=== PATIENT | male | born 1945 | race Caucasian/White ===

== ENCOUNTER → 2017-02-01 | Outpatient (CLI) | payer OTHER, MEDICARE ==
[~2017-02-01] MED LIST: CYAN10005 PO; GLUCTAB7 PO; LIGAPLEX PO; MAGN400T6 PO; VITACAP26 PO
--- NOTE | 2017-02-01 15:37 | DIAGNOSTIC IMAGING REPORT ---
TWO VIEW CHEST CLINICAL HISTORY: Chronic cough. FINDINGS: PA and lateral chest radiographs are obtained. No prior studies are available for comparison at the time of dictation. The PA view is degraded by apical and out of positioning. The heart is top normal for projection. The mediastinal contour is within normal limits. There is mild elevation of left hemidiaphragm with left basilar atelectasis. The lungs and pleural spaces are otherwise clear. There is no pneumothorax. The bony thorax appears intact. Degenerative change is seen throughout the thoracic spine. Chronic posttraumatic deformity is noted in the left clavicle. IMPRESSION: No active disease in the chest. Electronically signed by: Margarito Carrillo M.D. 02/01/2017 3:34 PM Dictated Date/Time: 02/01/2017 3:33 PM
== END | disposition home or self-care (01) ==
LOC: C.RADPV 15:20
PROVIDERS: ATTEND Chiropractor
DX: R05 Cough (principal)

== ENCOUNTER 2019-01-11 04:47 | Inpatient (IN) ==
--- NOTE | 2018-12-10 14:49 | Anesthesiology Consultation ---
Date of Service December 10, 2018 Assessment & Plan (1) Encounter for pre-operative examination: Chart Review Chart Review: Acceptable Risk for Surgery and Patient seen in Pre Admission Testing Teaching & Discussion Instructed NPO after midnight before surgery, except medications with 15 cc of water. Medication instructions provided according to the PAT guidelines. History Surgery Operation Date: 01/11/19 07:00 Proposed Procedures p Right Anterior Total Hip Arthroplasty - Gene Clayton DO Height/Weight Height: 5 ft 11 in Weight: 107.1 kg Allergies Allergy/AdvReac Type Severity Reaction Status Date / Time No Known Allergies Allergy Unverified 12/04/18 08:15 Medications Home Medications Medication Instructions Recorded Confirmed Last Taken [place] Bark 1 tab PO DAILY 12/04/18 12/04/18 Unknown ismodqxy-lroas-lgn4-C-mane-bor 1 tab PO QAM 12/04/18 12/04/18 Unknown [Mxuirzky-Ajouz-GYM(with boron)] magnesium 250 mg PO DAILY 12/04/18 12/04/18 Unknown multivitamin 1 tab PO DAILY 12/04/18 12/04/18 Unknown turmeric-turmeric ext-pepper 1 cap PO QAM 12/04/18 12/04/18 Unknown Past Medical History Medical History Chronic back pain Degenerative disc disease Obesity Osteoarthritis Past Family History Family History Mother Family history of diabetes mellitus Past Surgical History Surgical History H/O arthroscopy of knee Complicated by post-op MRSA infection, req'd subsequent debridement surgery. [facility] 25+ yrs ago. H/O eye surgery MACULAR HOLES REPAIR BILATERAL EYES History of carpal tunnel release BILATERAL History of cataract surgery BILATERAL Nausea and vomiting after administration of anesthetic agent Past Anesthesia History No Family Hx of Anesthesia Complications and Other single episode of PONV History of PONV Yes (single episode with cataract) Motion Sickness Screening History of Motion Sickness: Yes Social History Smoking Status: Former smoker tobacco type: cigarettes Do You Dip or Chew Tobacco: No Smoking End Date: QUIT ATE AGE 28 Hx Alcohol Use: Yes Alcohol type: beer alcohol intake frequency: a few times a month Hx Substance Use: No substance use type: does not use Exercise / Class Metabolic Activity II 4-5 Yardwork/Stairs/Walk up hill (Denies CP or SOB with stairs, does flight daily at home) Review of Systems Pt denies any recent chest pain, shortness of breath, palpitations, cough, fever or URI. Physical Exam Vital Signs BP: 130/73 P: 77bpm SPO2: 95% RA T: 98.7 F R: 18 ENMT Mouth: + dental restorations (few crowns); no chipped teeth and no loose teeth Thyromental Distance: > or= 3.5 Finger Breadths (4) Mallampati Class: II Missing almost all bottom teeth. Front incisors remain. Neck normal visual inspection; neck extension not limited Respiratory normal respiratory effort Auscultation: lungs clear to auscultation bilaterally Cardiovascular Rate/Rhythm: regular rate and regular rhythm Heart Sounds: no murmur Vessels: no carotid bruit Testing Electrocardiogram Date: 12/10/18 Findings: + NSR @ (73) Chest X-Ray Date: 12/10/18 FINDINGS: Cardiomediastinal and hilar silhouettes are unchanged. No pneumothorax, pleural effusion, lobar airspace consolidation or overt pulmonary edema. Subsegmental left basilar opacities are unchanged suggesting scarring/atelectasis. Healed remote fracture deformity about the left clavicle. Degenerative changes of the s houlders and spine. IMPRESSION: No acute process. Laboratory Results 12/10/18 15:12/10/18 15: Blood Type O Positive 12/10/18 15: Antibody Screen NEGATIVE 12/10/18 15: PT 10.6 Seconds (9.0-12.0) 12/10/18 15: INR 1.0 (0.9-1.1) 12/10/18 15: APTT 25.4 Seconds (21.0-31.0) 12/10/18 15:01
--- NOTE | 2018-12-10 14:57 | PAT Medication Instructions ---
Medication Instructions Date of Service December 10, 2018 Home Medications [place] Bark 1 tab PO DAILY qlykywgc-mxpuy-wsx6-C-mane-bor 1 tab PO QAM magnesium 250 mg PO DAILY multivitamin 1 tab PO DAILY turmeric-turmeric ext-pepper 1 cap PO QAM STOP taking 2 weeks before surgery [place] Bark 1 tab PO DAILY ofvmbiqb-nwkni-orf1-C-mane-bor 1 tab PO QAM turmeric-turmeric ext-pepper 1 cap PO QAM DO NOT take the morning of surgery magnesium 250 mg PO DAILY multivitamin 1 tab PO DAILY Other Notes If you have any questions please call us at [phone] or [phone] or [phone] or [phone]
--- NOTE | 2018-12-10 15:38 | XRay Report ---
XR chest Pre-admission PA/Lat HISTORY: 72 years-old Male PAT preoperative exam. No acute chest complaints COMPARISON: Chest radiograph 02/01/2017 TECHNIQUE: PA and lateral views of the chest FINDINGS: Cardiomediastinal and hilar silhouettes are unchanged. No pneumothorax, pleural effusion, lobar airsp yong consolidation or overt pulmonary edema. Subsegmental left basilar opacities are unchanged suggest ing scarring/atelectasis. Healed remote fracture deformity about the left clavicle. Degenerative gilbert ges of the shoulders and spine. IMPRESSION: No acute process. The above report was generated using voice recognition software. It may contain grammatical, syntax o r spelling errors. Electronically signed by: Eren Hugo M.D. 12/10/2018 3:36 PM
[2018-12-10 16:02] LABS: Basophils # (auto) 0.04 K/uL (0-0.2); Basophils % (auto) 0.4 %; Eosinophils # (auto) 0.19 K/uL (0-0.5); Eosinophils % (auto) 2.1 %; Hemoglobin 13.5 g/dL (14.0-18.0); Immature Granulocytes # (auto) 0.03 K/uL (0.00-0.02); Immature Granulocytes % (auto) 0.3 %; Lymphocytes # (auto) 2.28 K/uL (1.2-3.4); Lymphocytes % (auto) 25.1 %; Mean Corpuscular Hgb Conc 33.8 g/dL (32-36); Mean Corpuscular Volume 89.7 fL (80-100); Mean Platelet Volume 9.7 fL (7.4-10.4); Monocytes # (auto) 0.82 K/uL (0.11-0.59); Neutrophils # (auto) 5.71 K/uL (1.4-6.5); Neutrophils % (auto) 63.1 %; Platelet Count 228 K/uL (130-400); RDW Coefficient of Variation 13.3 % (11.5-14.5); RDW Standard Deviation 43.6 fL (36.4-46.3); Red Blood Count 4.46 M/uL (4.7-6.1); White Blood Count 9.07 K/uL (4.8-10.8)
[2018-12-10 16:10] LABS: BUN Creatinine Ratio 21.9 (10-20); Calcium 8.8 mg/dl (8.5-10.1); Creatinine Clr Calc Pharmacy 89.1 ml/min; Est GFR (African American) 92.4; Est GFR (Non-African American) 79.8; Potassium 3.8 mmol/L (3.5-5.1)
[2018-12-10 16:28] LABS: Partial Thromboplastin Ratio 0.9; Partial Thromboplastin Time 25.4 Seconds (21.0-31.0); Prothrombin Time 10.6 Seconds (9.0-12.0)
--- NOTE | 2019-01-09 07:39 | History & Physical Report ---
Date of Service January 09, 2019 Assessment & Plan (1) Osteoarthritis of right hip: We will proceed with a right anterior total hip arthroplasty. Postoperatively he will be placed on aspirin for DVT prophylaxis. He will be kept overnight at the hospital for postoperative medical management. He plans to use energy physical therapy upon discharge. Present on Admission?: Yes History of Present Illness Chief Complaint: Primary osteoarthritis of the right hip Primary Care Provider: Alex Levy MD Vikram is a pleasant 72-year-old male who is been dealing with chronic increasing right hip and groin pain. X-rays and clinical examination have been diagnostic for primary osteoarthritis of the right hip. After failing conservative treatment, he has elected to proceed with a right total hip arthroplasty. Allergies Allergy/AdvReac Type Severity Reaction Status Date / Time No Known Allergies Allergy Unverified 12/04/18 08:15 Home Medications Home Medications Medication Instructions Recorded Confirmed Type [place] Bark 1 tab PO DAILY 12/04/18 12/04/18 History nrogkkgq-ferxu-czl6-C-mane-bor 1 tab PO QAM 12/04/18 12/04/18 History [Upyyaaud-Cajwl-MVC(with boron)] magnesium 250 mg PO DAILY 12/04/18 12/04/18 History multivitamin 1 tab PO DAILY 12/04/18 12/04/18 History turmeric-turmeric ext-pepper 1 cap PO QAM 12/04/18 12/04/18 History Past Med/Surg History Medical History Chronic back pain Degenerative disc disease Obesity Osteoarthritis Surgical History H/O arthroscopy of knee Complicated by post-op MRSA infection, req'd subsequent debridement surgery. [facility] 25+ yrs ago. H/O eye surgery MACULAR HOLES REPAIR BILATERAL EYES History of carpal tunnel release BILATERAL History of cataract surgery BILATERAL Nausea and vomiting after administration of anesthetic agent Family History Mother Family history of diabetes mellitus Social History Preferred Language: Iraqi Communication Ability: Effective Patrol Deputy Sheriff Required: Yes Beliefs That Will Affect Care: None Current Living Situation: Spouse Other Information That Helps Us Care for You: No Feels Safe at Home: Yes Safety Concerns: Feels Safe At This Time Smoking Status: Former smoker Hx Alcohol Use: Yes Hx Substance Use: No Review of Systems All systems reviewed & are unremarkable except as noted in HPI & below Physical Exam Constitutional: WD/WN, vitals as above Eyes: PERRL, conjunctivae normal, anicteric sclerae ENMT: external ear and nose normal, oropharynx normal Neck: trachea midline, no thyromegaly Respiratory: normal respiratory effort Cardiovascular: RRR, no murmur, no edema Gastrointestinal (Abdomen): normal bowel sounds, soft, nontender, no hepatosplenomegaly Musculoskeletal: Physical examination of the right hip reveals decreased range of motion with flexion, internal and external rotation. There is significant groin pain with forced internal rotation of the hip his leg lengths are essentially equal. Psychiatric: A+Ox3, euthymic affect Results & Data Diagnostic Findings Radiographs of the right hip and pelvis demonstrate advanced osteoarthritis with joint space narrowing osteophyte formation and zipb-uv-vulo articulation.
[2019-01-11] MEDS ORDERED: ROPIVACAINE 0.5% HCL/PF 150 MG, BUPIVACAINE 0.5% MPF 30 ML, EPINEPHrine 30MG/30ML (OR U... INFIL SCH (06:00)
[2019-01-11] MEDS ORDERED: ACETAMINOPHEN 500 MG TAB PO SCH (06:00)
[2019-01-11] MEDS ORDERED: TRANEXAMIC ACID 1,000 MG **IV Pre-op IV SCH (06:00)
[2019-01-11] MEDS ORDERED: FAMOTIDINE 20 MG TAB PO SCH (06:00)
[2019-01-11] MEDS ORDERED: GABAPENTIN 300 MG PO SCH (06:00)
[2019-01-11] MEDS ORDERED: LR 60ML/HR IV SCH (06:00)
[2019-01-11] MEDS ORDERED: CEFAZOLIN 2000MG 2,000 MG/15 ML SYR IV SCH (06:00)
[2019-01-11] MEDS ORDERED: LR 500ML BOLUS, THEN 15ML/HR IV SCH (06:00)
[2019-01-11] MEDS ORDERED: BUPIVACAINE 0.5 % 5 MG/1 ML PF 10ML VIAL ONE (06:28)
[2019-01-11] MEDS ORDERED: fentaNYL citrate 100 MCG/2 ML VIAL ONE (06:30)
[2019-01-11] MEDS ORDERED: TRANEXAMIC ACID 1,000 MG **IV Intra-op IV SCH (06:30)
[2019-01-11] MEDS ORDERED: MIDAZOLAM HCL 1 MG/ML 2ML VIAL ONE ×3 (06:30→08:34)
--- NOTE | 2019-01-11 06:34 | History & Physical Bridge Note ---
Date of Service January 11, 2019 History & Physical Bridge Note I have examined the patient, reviewed the History & Physical and in the interval since the performance of the History & Physical I have noted the following changes of clinical significance: no changes noted
[2019-01-11] MEDS ORDERED: ePHEDrine sulfate 50 MG/ML AMP IV PRN (06:43)
[2019-01-11] MEDS ORDERED: ATROPINE SULFATE 0.1 MG/ML 10ML SYR IV PRN (06:43)
[2019-01-11] MEDS ORDERED: fentaNYL citrate 100 MCG/2 ML VIAL IV PRN (06:43)
[2019-01-11] MEDS ORDERED: ONDANSETRON INJ 2 MG/ML 2 ML VIAL IV PRN ×2 (06:43→10:52)
[2019-01-11] MEDS ORDERED: ORTHO JOINT ANESTHETIC ONE (06:48)
[2019-01-11] MEDS ORDERED: POVIDONE-IODINE OP SOLN 30 ML BTL ONE (06:49)
[2019-01-11] MEDS ORDERED: PROPOFOL IV EMULSION 10 MG/ML 20 ML VIAL IV ONE (07:09)
[2019-01-11] MEDS ORDERED: ePHEDrine sulfate 50 MG/ML SYR ONE (07:31)
[2019-01-11] MEDS ORDERED: PHENYLEPHRINE 100MCG/ML 5ML SYR ONE (07:31)
[2019-01-11] MEDS ORDERED: PHENYLEPHRINE HCL 10 MG/ML VIAL ONE (08:28)
[2019-01-11] MEDS ORDERED: KETAMINE HCL INJ 50 MG/ML 10 ML VIAL ONE (08:39)
[2019-01-11] MEDS ORDERED: CEFAZOLIN 2000MG 2,000 MG/15 ML SYR IV ONE (08:56)
--- NOTE | 2019-01-11 09:09 | Operative Report ---
Post Operative Report Pre & Post Diagnosis Operation Date: 01/11/19 07:00 Pre-Op Diagnosis: Right Hip Degenerative Joint Disease Post-Op Diagnosis: Right Hip Degenerative Joint Disease Procedure Operation Date: 01/11/19 07:00 Actual Procedures p Right Anterior Total Hip Arthroplasty - Gene Clayton DO Surgeon Gene Clayton DO Sewer And Drain Technician Gene Schrader PAC Estimated Blood Loss 300 Findings Consistent with Post-Op Diagnosis Specimens Right femoral head Complications none Disposition Disposition: Recovery Room Indications Vikram is a pleasant 73-year-old male who presented my office with chronic increasing right hip and groin pain. X-rays and clinical examination were di agnostic for primary osteoarthritis of the right hip. After failing conservative treatment, elected to proceed with a right total hip arthroplasty. Description of Procedure Implants used Biomet Taperloc total hip arthroplasty system with a size 14 high offset Taperloc stem, a 54 mm G7 cup with a 25mm screw, an E1 polyethylene liner, a 40 mm ceramic head with a +3 neck. Patient arrived at the hospital for the above procedure. They were seen in the preoperative holding area and the operative extremity was identified and signed. They were given a spinal anesthetic. They were given a preoperative antibiotic and TXA. They were taken back To the operating room and laid on the table in the supine position. The leg was brought out through a Puristst leg positioner. The hip was then prepped and draped in sterile fashion. A timeout was done and the patient in upper extremities properly identified. An anterior approach was used. Dissection was taken down through the fascia and the tensor muscle belly was retracted laterally and the rectus was retracted medially. The circumflex vessels were identified and ligated. The capsule was then incised and tagged for later repair. The femoral neck was then cut and the femoral head was removed. The acetabulum was exposed. Time was spent doing a complete circumferential labral release. Sequential reaming of the acetabulum up to a size 53 reamer was done. Final reamings were done under fluoroscopy to ensure appropriate version. A Biomet 54 mm G7 cup was then impacted into place. A single 25 mm screw was placed. The E1 polyethylene liner was then snapped into place. Surrounding soft tissues were then injected with 100 cc of an orthopedic pain control cocktail. The proximal femur was then exposed. Sequential broaching up to a size 14 broach was done. Off that broach a size 40 head with a 0 neck was trialed. The hip was reduced and fluoroscopic images showed a slight increase in the leg lengths. The broach was removed. The final size 14 high offset Taperloc stem was then impacted into place. A ceramic 40 mm head with a -3 neck was then impacted into place in the hip was reduced. Unfortunately the hip was unstable. I was not comfortable leaving the -3 neck in the hip. The head and neck were then removed. Several trials were once again tried and a +3 seem to give the best stability with the best alignment on x-ray. A 40 mm ceramic head with a +3 neck was then impacted into place. This gave excellent stability. Unfortunately the previous head and neck were wasted. Final fluoroscopic images showed anatomic reduction of the hip. The capsule was then closed with #1 Vicryl suture. A dilute betadyne lavage was then done for 3 minutes. The joint was then irrigated with normal saline solution. The fascia was closed with #1 PDS suture. Skin was closed with 2-0 Vicryl, sebastian, and a Es VAC dressing. The patient was then transferred to a hospital bed and taken to the post anesthesia care unit in stable condition. They tolerated the procedure well. I attest to the content of the Intraoperative Record and any orders documented therein. Any exceptions are noted below.
--- NOTE | 2019-01-11 09:28 | Fluoroscopy Report ---
FL hip RT 1V CLINICAL HISTORY: RT ANTERIOR TOTAL HIP COMPARISON STUDY: Pelvis and right hip 08/22/2018. FLUOROSCOPY TIME: 40 seconds. FINDINGS: 2 fluoroscopic spot images of the right hip demonstrated right total hip arthroplasty. The hardware appears intact. No fracture or dislocation. IMPRESSION: Fluoroscopy provided for right total hip arthroplasty. Electronically signed by: Scot Johnson M.D. 01/11/2019 9:27 AM
--- NOTE | 2019-01-11 10:11 | Anesthesiology Progress Note ---
Date of Service January 11, 2019 Anesthesia Post Procedure Vital Signs Vital Signs: Temp Pulse Pulse Pulse Resp BP BP 01/11/19 10:05 78 14 01/11/19 10:00 77 14 105/62 01/11/19 09:55 81 14 95/57 L 01/11/19 09:50 82 14 98/57 L 01/11/19 09:45 83 15 96/65 L 01/11/19 09:41 83 10 L 107/61 01/11/19 09:40 83 7 L 01/11/19 09:35 85 15 111/61 01/11/19 09:31 88 18 95/58 L 01/11/19 09:30 88 20 01/11/19 09:28 88 18 104/62 01/11/19 09:27 36.2 C L 89 87 20 104/62 01/11/19 05:37 36.9 C 76 18 146/85 H Pulse Ox 01/11/19 10:05 97 01/11/19 10:00 98 01/11/19 09:55 98 01/11/19 09:50 99 01/11/19 09:45 100 01/11/19 09:41 100 01/11/19 09:40 100 01/11/19 09:35 100 01/11/19 09:31 100 01/11/19 09:30 100 01/11/19 09:28 100 01/11/19 09:27 100 01/11/19 05:37 96 Pain Intensity Right Hip: Pain Intensity: 0 Notes Mental Status: alert / awake / arousable and participated in evaluation Nausea / Vomiting: adequately controlled Pain: adequately controlled Airway Patency, RR, SpO2: stable & adequate BP & HR: stable & adequate Hydration State: stable & adequate Neuraxial Anesthesia: was administered and sensory block is resolving Anesthetic Complications: no major complications apparent
--- NOTE | 2019-01-11 10:16 | XRay Report ---
AP PELVIS, CROSSTABLE LATERAL RIGHT HIP History: Right total hip arthroplasty. Degenerative arthritis. Postop. FINDINGS: The patient is status post a right total hip arthroplasty. The hardware is intact. No fract ure or dislocation. Skin sebastian are in place. IMPRESSION: Right total hip arthroplasty. No evidence for hardware complication Electronically signed by: Scot Johnson M.D. 01/11/2019 10:15 AM
[2019-01-11] MEDS ORDERED: METOCLOPRAMIDE HCL INJ 5 MG/ML 2 ML VIAL IV PRN (10:52)
[2019-01-11] MEDS ORDERED: MAGNESIUM HYDROXIDE SUSP 30 ML UDC PO PRN (10:52)
[2019-01-11] MEDS ORDERED: BISACODYL 10 MG SUPP PR PRN (10:52)
[2019-01-11] MEDS ORDERED: OXYCODONE HCL IR 5 MG TAB (IMMEDIATE RELEASE) PO PRN (10:52)
[2019-01-11] MEDS ORDERED: HYDROmorphone INJ 0.5 MG/0.5 ML SYR IV PRN (10:52)
[2019-01-11] MEDS ORDERED: NALOXONE HCL 0.4 MG/1 ML VIAL/CARP IV PRN (10:52)
[2019-01-11] MEDS: ACETAMINOPHEN 500 MG TAB PO SCH ×2 (14:58→22:22)
[2019-01-11] MEDS: KETOROLAC TROMETHAMINE 15 MG/ML VIAL IV SCH ×2 (14:58→18:13)
[2019-01-11] MEDS: SODIUM CHLORIDE 0.9% 1000ML 1,000 ML IV SCH (14:58)
[2019-01-11] MEDS: CEFAZOLIN 2000MG 2,000 MG/15 ML SYR IV SCH ×2 (16:13→22:24)
[2019-01-11] MEDS: DOCUSATE SODIUM 100 MG CAP PO SCH (20:12)
[2019-01-11] MEDS: ASPIRIN 81 MG ECTAB PO SCH (20:12)
[2019-01-11] MEDS ORDERED: SENNA 8.6 MG TAB PO SCH (21:00)
[2019-01-12] MEDS: SODIUM CHLORIDE 0.9% 1000ML 1,000 ML IV SCH (00:18)
[2019-01-12] MEDS: KETOROLAC TROMETHAMINE 15 MG/ML VIAL IV SCH ×2 (00:19→06:06)
[2019-01-12 05:52] LABS: Basophils # (auto) 0.01 K/uL (0-0.2); Basophils % (auto) 0.1 %; Eosinophils # (auto) 0.07 K/uL (0-0.5); Eosinophils % (auto) 0.5 %; Hematocrit (blood only) 32.9 % (42-52); Hemoglobin 11.2 g/dL (14.0-18.0); Immature Granulocytes # (auto) 0.03 K/uL (0.00-0.02); Immature Granulocytes % (auto) 0.2 %; Lymphocytes # (auto) 1.08 K/uL (1.2-3.4); Mean Corpuscular Volume 89.2 fL (80-100); Mean Platelet Volume 8.8 fL (7.4-10.4); Monocytes # (auto) 1.39 K/uL (0.11-0.59); Monocytes % (auto) 10.2 %; Platelet Count 185 K/uL (130-400); RDW Standard Deviation 42.2 fL (36.4-46.3); Red Blood Count 3.69 M/uL (4.7-6.1); White Blood Count 13.58 K/uL (4.8-10.8)
[2019-01-12] MEDS: ACETAMINOPHEN 500 MG TAB PO SCH (06:06)
[2019-01-12 06:12] LABS: BUN Creatinine Ratio 20.5 (10-20); Blood Urea Nitrogen 19 mg/dl (7-18); Calcium 8.1 mg/dl (8.5-10.1); Carbon Dioxide 26 mmol/L (21-32); Chloride 108 mmol/L (98-107); Est GFR (Non-African American) 80.2; Glucose 114 mg/dl (70-99); Sodium 140 mmol/L (136-145)
[2019-01-12] MEDS: ASPIRIN 81 MG ECTAB PO SCH (08:50)
[2019-01-12] MEDS: DOCUSATE SODIUM 100 MG CAP PO SCH (08:50)
--- NOTE | 2019-01-12 08:56 | Orthopedic Progress Note ---
Date of Service January 12, 2019 Assessment & Plan (1) Osteoarthritis of right hip: Overall he is doing very well. He is already been up and ambulating into the hallways. He is on aspirin for DVT prophylaxis. He will be seen by physical therapy this morning for ambulation. He is on oxycodone for pain control. We will discharge him home later this morning. A follow-up with orthopedics in 2 weeks. Present on Admission?: Yes India Sue was seen and examined at bedside this morning. Overall is doing very well. He has very little pain in the right hip. He has been up and ambulating throughout the hallway already. He has no complaints. Physical Exam Vital Signs (Past 24 Hours): Last Vital Signs Temp 36.5 C 01/12/19 07:25 Pulse 72 01/12/19 07:25 Resp 18 01/12/19 07:25 BP 124/72 01/12/19 07:25 Pulse Ox 97 01/12/19 07:25 Musculoskeletal: On physical examination of the right hip, the Es VAC dressing is to suction. His leg lengths are equal. He has active dorsiflexion and plantarflexion of the right ankle. Sensation is intact throughout. Results & Data Laboratory Results H & H 12/10/18 01/12/19 Range/Units 15:01 05:27 Hgb 13.5 L 11.2 L (14.0-18.0) g/dL Hct 40.0 L 32.9 L (42-52) % Coagulation 12/10/18 Range/Units 15:01 INR 1.0 (0.9-1.1) Diagnostic Findings Postoperative x-rays of the right hip show the prosthesis to be in anatomic alignment without any evidence of fracture dislocation or loosening
--- NOTE | 2019-01-12 08:57 | Discharge Summary ---
Date of Service January 12, 2019 Admission HPI Per Admitting Provider Vikram is a pleasant 72-year-old male who is been dealing with chronic increasing right hip and groin pain. X-rays and clinical examination have been diagnostic for primary osteoarthritis of the right hip. After failing conservative treatment, he has elected to proceed with a right total hip arthroplasty. Specialty Data Orthopedic H & H 12/10/18 01/12/19 Range/Units 15:01 05:27 Hgb 13.5 L 11.2 L (14.0-18.0) g/dL Hct 40.0 L 32.9 L (42-52) % Coagulation 12/10/18 Range/Units 15:01 INR 1.0 (0.9-1.1) Discharge Data Consultations 01/12/19 08:00 Consult Case Management - Discharge Planning Routine Procedures Performed Operation Date: 01/11/19 07:00 Actual Procedures p Right Anterior Total Hip Arthroplasty(Right) - Gene Clayton DO Hospital Course (1) Osteoarthritis of right hip: On January 11, 2019 Vikram arrived at [facility] and underwent a right anterior total hip arthroplasty without complication. He had a spinal anesthetic. Postoperatively he was started on aspirin for DVT prophylaxis and discharged to general orthopedic floors. His hospital course was uneventful. On postop day #1 his H&H was stable and his pain was well controlled. He was already ambulated into the hallways. He was seen by physical therapy. He was subsequently discharged to home. He will follow-up with orthopedics in 2 weeks. Discharge Instructions Home Medications Medication Instructions Recorded Confirmed [place] Bark 1 tab PO DAILY 12/04/18 01/11/19 uoffhyfh-vpbkc-gdx1-C-mane-bor 1 tab PO QAM 12/04/18 01/11/19 [Byxgiyhy-Ymets-AHU(with boron)] magnesium 250 mg PO DAILY 12/04/18 01/11/19 multivitamin 1 tab PO DAILY 12/04/18 01/11/19 turmeric-turmeric ext-pepper 1 cap PO QAM 12/04/18 01/11/19 Previous Rx's Medication Instructions Recorded aspirin [Ecotrin Low Strength] 81 mg PO BID #84 tab 01/12/19 oxycodone 5 - 10 mg PO Q4H PRN #40 tab 01/12/19
[2019-01-12] MEDS ORDERED: MULTIVITAMIN TAB PO SCH (09:00)
--- NOTE | 2019-01-12 09:50 | Anesthesiology Progress Note ---
Date of Service January 12, 2019 Anesthesia Post Procedure Vital Signs Vital Signs: Temp Pulse Pulse Pulse Resp BP BP 01/12/19 09:15 36.5 C 63 72 18 124/72 01/12/19 07:25 36.5 C 72 18 124/72 01/12/19 03:17 36.5 C 75 16 116/68 01/11/19 23:39 36.7 C 73 15 113/66 01/11/19 19:59 36.6 C 63 20 136/78 01/11/19 15:36 36.6 C 69 20 122/74 01/11/19 13:35 70 16 114/66 01/11/19 12:31 71 18 119/73 01/11/19 11:30 69 18 111/68 01/11/19 11:00 72 18 111/70 01/11/19 10:30 36.3 C L 76 16 103/64 01/11/19 10:23 36.7 C 01/11/19 10:20 74 16 103/60 01/11/19 10:15 76 14 94/61 L 01/11/19 10:12 78 14 01/11/19 10:11 78 18 97/52 L 01/11/19 10:10 77 23 01/11/19 10:05 78 14 01/11/19 10:00 77 14 105/62 01/11/19 09:55 81 14 95/57 L 01/11/19 09:50 82 14 98/57 L Pulse Ox 01/12/19 09:15 97 01/12/19 07:25 97 01/12/19 03:17 95 01/11/19 23:39 96 01/11/19 19:59 98 01/11/19 15:36 98 01/11/19 13:35 94 01/11/19 12:31 99 01/11/19 11:30 99 01/11/19 11:00 100 01/11/19 10:30 97 01/11/19 10:23 97 01/11/19 10:20 95 01/11/19 10:15 96 01/11/19 10:12 99 01/11/19 10:11 95 01/11/19 10:10 97 01/11/19 10:05 97 01/11/19 10:00 98 01/11/19 09:55 98 01/11/19 09:50 99 Pain Intensity Right Hip: Pain Intensity: 2 Notes Mental Status: alert / awake / arousable and participated in evaluation Patient Amnestic to Procedure: Yes Nausea / Vomiting: adequately controlled Pain: adequately controlled Airway Patency, RR, SpO2: stable & adequate BP & HR: stable & adequate Hydration State: stable & adequate Neuraxial Anesthesia: was administered and sensory block resolved Anesthetic Complications: no major complications apparent and Pt Satisfied with anesthetic care
== END 2019-01-12 10:16 | disposition home or self-care (01) | DRG 470 ==
LOC: ASU 04:47 → 3E 10:00

== ENCOUNTER 2024-01-05 07:18 | Observation (INO) ==
--- NOTE | 2023-11-30 13:04 | PAT Medication Instructions ---
Medication Instructions Date of Service November 30, 2023 Home Medications Medication Instructions Recorded amoxicillin 500 mg tablet 2,000 mg (4 x 500 mg) PO ONCE PRN 12/04/19 prophylaxis #4 tabs glucosamine 750 yp-lndkydavohm-gck no1 625 mg-C 30 mg-mane 1 mg tablet (Wfyvhedfuzp-Osrokztqyhq-YOV) 1 tab PO QAM magnesium 250 mg tablet 250 mg PO QAM amoxicillin 500 mg tablet 2,000 mg (4 x 500 mg) PO ONCE PRN ascorbate calcium (vitamin C) 500 mg tablet 500 mg PO QAM diclofenac potassium 50 mg tablet 50 mg PO QAM Continue as directed amoxicillin 500 mg tablet 2,000 mg (4 x 500 mg) PO ONCE PRN(if needed) ASK your surgeon for instructions diclofenac potassium 50 mg tablet 50 mg PO QAM STOP taking 2 weeks before surgery (or as soon as possible if surgery is within 2 weeks) glucosamine 750 nu-hacptdwxvvi-dlt no1 625 mg-C 30 mg-mane 1 mg tablet (Zezffchuqgd-Jfkabzypoif-VBP) 1 tab PO QAM DO NOT take the morning of surgery magnesium 250 mg tablet 250 mg PO QAM ascorbate calcium (vitamin C) 500 mg tablet 500 mg PO QAM Other Notes NOTHING TO EAT OR DRINK AFTER MIDNIGHT. If you have any questions please call us at [phone] or [phone] or [phone] or [phone]
--- NOTE | 2023-12-05 14:30 | Anesthesiology Consultation ---
Date of Service December 05, 2023 Assessment & Plan (1) Encounter for pre-operative examination: - Outpatient joint assessment: Patient is currently scheduled for inpatient pathway. If re-evaluated and patient/surgeon requests outpatient pathway, patient is acceptable candidate for outpatient joint program from anesthesia standpoint pending surgeon's office assessment of pt motivation/support/completion of same day joint program preop requirements. Chart Review Chart Review: Acceptable Risk for Surgery and Patient seen in Pre Admission Testing Teaching & Discussion Pre-Anesthesia Teaching/Discussion Notes: Instructed NPO after midnight before surgery, except medications with 15 cc of water. Medication instructions provided according to the PAT guidelines. History Surgery Operation Date: 01/05/24 08:10 Proposed Procedures p Right Total Knee Arthroplasty - Gene Clayton DO Height/Weight Height: 5 ft 11 in Weight: 100.2 kg Allergies Allergy/AdvReac Type Severity Reaction Status Date / Time No Known Allergies Allergy Verified 11/28/23 12:08 Medications Home Medications Medication Instructions Recorded Confirmed Last Taken glucosamine 750 dc-xagzxmlxmop-vua 1 tab PO QAM 12/04/18 11/28/23 12/30/18 07:00 no1 625 mg-C 30 mg-mane 1 mg tablet (Iylbmeaveyp-Tfaedysktiz-DNY) magnesium 250 mg tablet 250 mg PO QAM 12/04/18 11/28/23 12/30/18 07:00 amoxicillin 500 mg tablet 2,000 mg (4 x 500 mg) PO ONCE PRN 12/04/19 11/28/23 Unknown prophylaxis #4 tabs ascorbate calcium (vitamin C) 500 500 mg PO QAM 12/29/20 11/28/23 Unknown mg tablet diclofenac potassium 50 mg tablet 50 mg PO QAM 10/16/23 11/28/23 Unknown Past Medical History Medical History (Updated 12/05/23 @ 14:30 by Nadia Burris PA-C) Chronic back pain denies change or worsening Obesity Patient denies h/o stroke, seizures, heart attack, heart failure, DM, HTN, blood clots/DVTs or blood transfusions. Exercise / Class Metabolic Activity II 4-5 Yardwork/Stairs/Walk up hill (denies chest discomfort or shortness of breath with 1 FOS) Past Family History Family History Mother Family history of diabetes mellitus Other No family history of adverse response to anesthesia Denies family history of Ovarian cancer Prostate cancer Myocardial infarction Breast cancer Colorectal cancer Hypertension Past Surgical History Surgical History (Updated 12/05/23 @ 14:31 by Nadia Burris PA-C) H/O arthroscopy of knee Right. Complicated by post-op MRSA infection, req'd subsequent debridement surgery. [facility] 25+ yrs ago. H/O eye surgery macular hole repairs bilat per pt History of carpal tunnel release bilat History of cataract surgery bilat History of total right hip arthroplasty Nausea and vomiting after administration of anesthetic agent denies needing scop patch Past Anesthesia History No Hx of Anesthesia Complications and No Family Hx of Anesthesia Complications History of PONV History of PONV (denies needing scop patch) and Hx of Motion Sickness Social History Smoking Status: Former smoker tobacco type: cigarettes Do You Dip or Chew Tobacco: No Smoking End Date: quit at age 27 Hx Alcohol Use: Yes Alcohol type: beer alcohol intake frequency: holidays/special occasions only Hx Substance Use: No substance use type: does not use Review of Systems Suspected snoring per pt, denies witnessed apneas. Patient denies chest pain, shortness of breath, dyspnea on exertion, reflux, fever, chills, cough, wheezing, or palpitations. Physical Exam Vital Signs Vitals BP 138/69 P 74 TEMP 98.8 SP02 96% on RA RESP 18 Physical Patient resting comfortably in chair in no acute distress, alert and oriented, responding appropriately throughout visit Full cervical extension range of motion without pain TMD 3.5 finger breadths Mallampati Score 2 Dentition: intact, denies chipped or loose teeth, caps/crowns, implants or bridges Lungs: normal respiratory effort. Good air movement, clear throughout to auscultation, no adventitious breath sounds Cardiac: regular rate and rhythm, no murmurs noted Carotid arteries: negative bruit bilat Lab Results Anesthesia Preop Results Results Anesthesia Widget: WBC 8.03 K/ul (4.8-10.8) 12/05/23 Hgb 12.9 g/dl (14.0-18.0) L 12/05/23 Hct 38.9 % (42.0-52.0) L 12/05/23 Plt 242 K/uL (130-400) 12/05/23 Na 139 mmol/L (136-145) 12/05/23 K 4.0 mmol/L (3.5-5.1) 12/05/23 Cl 105 mmol/L (98-107) 12/05/23 CO2 29 mmol/L (21-32) 12/05/23 BUN 16 mg/dl (6-23) 12/05/23 Creat 0.84 mg/dl (0.6-1.4) 12/05/23 Glucose Level 80 mg/dl (70-99(Fasting)) 12/05/23 PT 10.8 Seconds (9.0-12.0) 12/05/23 PTT 28 Seconds (21-31) 12/05/23 INR 1.0 (0.9-1.1) 12/05/23 SARS-CoV-2, RNA, NAAT Negative 10/16/23 Blood Type O Positive 12/05/23 Antibody Screen NEGATIVE 12/05/23 Testing Electrocardiogram Date: 12/05/23 NSR, rate 72 bpm Chest X-Ray Date: 12/05/23 Cardiomegaly with no active disease in the chest.
--- NOTE | 2024-01-04 12:33 | History & Physical Report ---
Date of Service January 04, 2024 Assessment & Plan (1) Osteoarthritis of right knee: We will proceed with a right total knee arthroplasty. Postoperatively he will be started on aspirin for DVT prophylaxis and kept overnight in the hospital for postop medical management. He plans to have the hospital set up home health before discharge. History of Present Illness Chief Complaint: Osteoarthritis of the right knee. Primary Care Provider: Minerva Snell MD Vikram is a pleasant 77-year-old male who I did a right hip replacement on him in the past. He has done very well with that. Unfortunately, he has been dealing with increasing right knee pain. He says his knee pain has waxed and waned over the years. Over the past few weeks, it has been quite painful. He has trouble walking long distances. He has trouble going up and down stairs. X-rays and clinical examination been diagnostic for advancing osteoarthritis of the right knee. After failing conservative treatment, he has elected to proceed with a right total knee arthroplasty. . Allergies Allergy/AdvReac Type Severity Reaction Status Date / Time No Known Allergies Allergy Verified 11/28/23 12:08 Home Medications Medication Instructions Recorded Confirmed Type glucosamine 750 pm-ccshmswvtfz-wns 1 tab PO QAM 12/04/18 11/28/23 History no1 625 mg-C 30 mg-mane 1 mg tablet (Nvupadyvbet-Ackzvajxhpv-BPS) magnesium 250 mg tablet 250 mg PO QAM 12/04/18 11/28/23 History amoxicillin 500 mg tablet 2,000 mg (4 x 500 mg) PO ONCE PRN 12/04/19 11/28/23 Rx prophylaxis #4 tabs ascorbate calcium (vitamin C) 500 500 mg PO QAM 12/29/20 11/28/23 History mg tablet diclofenac potassium 50 mg tablet 50 mg PO QAM 10/16/23 11/28/23 History Past Med/Surg History Medical History Obesity Chronic back pain denies change or worsening Surgical History History of total right hip arthroplasty H/O arthroscopy of knee Right. Complicated by post-op MRSA infection, req'd subsequent debridement surgery. [facility] 25+ yrs ago. Nausea and vomiting after administration of anesthetic agent denies needing scop patch History of carpal tunnel release bilat History of cataract surgery bilat H/O eye surgery macular hole repairs bilat per pt Family History Mother Family history of diabetes mellitus Other No family history of adverse response to anesthesia Denies family history of Ovarian cancer Prostate cancer Myocardial infarction Breast cancer Colorectal cancer Hypertension Social History Smoking Status: Former smoker Tobacco Type: Cigarettes Smoking End Date: quit at age 27; Second Hand Exposure: No; Do You Dip or Chew Tobacco: No; Tobacco Cessation Education Requested by Patient: No Hx Alcohol Use: Yes Alcohol type: beer Alcohol Intake Frequency: 2-4 x/Month Alcohol Intake Frequency Comment: Once a month Hx Substance Use: No Preferred Language: Vietnamese Communication Ability: Effective Visual Impairment: No Limitations Hearing Ability: Normal Slab Inspector Required: No Beliefs That Will Affect Care: None marital status: Current Living Situation: Spouse current occupational status: employed current occupation: self employed How many Children do You have: 3 Other Information That Helps Us Care for You: No Feels Safe at Home: Yes Safety Concerns: Feels Safe At This Time Childhood Exposure to Second-Hand Smoke: No Diet: regular caffeine: No Dental Care, Regularly: No Physical Activity Frequency: Daily Physical Activity Frequency Comment: Weightlifting, ride bike, and workout daily Seatbelt Use: never Sunscreen Use: Yes Assistive Devices: Denture - Upper and Denture - Lower Assistive Devices Comment: full lower/upper denture Review of Systems All systems reviewed & are unremarkable except as noted in HPI & below. Physical Exam On physical examination of the right knee, he has a slight varus deformity. He has tenderness palpation of the distal medial femoral condyle and over the medial joint line.. Constitutional WD/WN, vitals as above Eyes PERRL, conjunctivae normal, anicteric sclerae ENMT external ear and nose normal, oropharynx normal Neck trachea midline, no thyromegaly Respiratory normal respiratory effort Cardiovascular RRR, no murmur, no edema Gastrointestinal (Abdomen) normal bowel sounds, soft, nontender, no hepatosplenomegaly Psychiatric A+Ox3, euthymic affect Results & Data Results & Data Laboratory Results . Diagnostic Findings X-rays of the right knee show advanced osteoarthritis with joint space narrowing, osteophyte formation, and jglo-lj-lcpw articulation. PG Care Time/CCT Total # of Minutes Spent Total Time Spent with Patient: Total time spent is greater than 50% in coordination of care (as documented) at patient's floor/unit and/or counseling patient: Coding Level of Care Code None Diagnoses Osteoarthritis of right knee M17.11
[~2024-01-05 07:18] MED LIST changes: +BUPIVACAINE 0.5 % 5 MG/1 ML PF 10ML VIAL ONE; -CYAN10005 PO; -GLUCTAB7 PO; -LIGAPLEX PO; -MAGN400T6 PO; +ROPIVACAINE 0.5% 5 MG/ML 30 ML VIAL ONE; -VITACAP26 PO
--- NOTE | 2024-01-05 07:52 | History & Physical Bridge Note ---
Date of Service January 05, 2024 History & Physical Bridge Note I have examined the patient, reviewed the History & Physical and in the interval since the performance of the History & Physical I have noted the following changes of clinical significance: no changes noted
[2024-01-05] MEDS ORDERED: MIDAZOLAM HCL 1 MG/ML 2ML VIAL ONE (07:56)
[2024-01-05] MEDS ORDERED: PROPOFOL IV EMULSION 10 MG/ML 20 ML VIAL IV ONE ×2 (07:56→10:16)
[2024-01-05] MEDS ORDERED: fentaNYL citrate PF 100 MCG/2 ML VIAL ONE (07:56)
[2024-01-05] MEDS: LR 500ML BOLUS, THEN 15ML/HR IV SCH (08:22)
[2024-01-05] MEDS: FAMOTIDINE 20 MG TAB PO SCH (08:34)
[2024-01-05] MEDS: ACETAMINOPHEN 500 MG TAB PO SCH ×2 (08:34→13:41)
[2024-01-05] MEDS: GABAPENTIN 300 MG CAP PO SCH (08:35)
[2024-01-05] MEDS: dexAMETHasone**PF** 10 MG/ML VIAL IV SCH (08:35)
[2024-01-05] MEDS: LR 60ML/HR IV SCH (08:39)
[2024-01-05] MEDS ORDERED: ePHEDrine sulfate 50 MG/ML AMP IV PRN (08:41)
[2024-01-05] MEDS ORDERED: fentaNYL citrate PF 100 MCG/2 ML VIAL IV PRN (08:41)
[2024-01-05] MEDS ORDERED: ONDANSETRON INJ 2 MG/ML 2 ML VIAL IV PRN ×2 (08:41→11:55)
[2024-01-05] MEDS ORDERED: ATROPINE SULFATE 0.1 MG/ML 10ML SYR IV PRN (08:41)
[2024-01-05] MEDS: TRANEXAMIC ACID 1,000 MG **IV Pre-op IV SCH (08:45)
[2024-01-05] MEDS: ceFAZolin 2000MG 2,000 MG/15 ML SYR IV SCH ×2 (08:57→16:46)
[2024-01-05] MEDS: ROPIV 0.5% 246mg, Ketorolac 30mg, EPINEPHrine 0.5mg in NSS INFIL SCH (09:49)
[2024-01-05] MEDS: ORTHO JOINT ANESTHETIC ONE (09:50)
[2024-01-05] MEDS: TRANEXAMIC ACID 1,000 MG **IV Intra-op IV SCH (10:18)
--- NOTE | 2024-01-05 10:25 | Operative Report ---
PG Post Operative Report Pre & Post Diagnosis Operation Date: 01/05/24 09:00 Pre-Op Diagnosis: Right Knee Degenerative Joint Disease Post-Op Diagnosis: Right Knee Degenerative Joint Disease I identified the patient and participated in the time-out.: Yes Procedure Operation Date: 01/05/24 09:00 Actual Procedures p Right Total Knee Arthroplasty(Right) - Gene Clayton DO Surgeon Gene Clayton DO [employer] Gene Schrader PA-C Estimated Blood Loss 30 Findings Consistent with Post-Op Diagnosis Specimens Right femoral and tibial bone Description of Procedure Implants used: I used a Lucita Persona total knee arthroplasty system with a size 12 standard PS femur, G tibia, 37 oval patella, and a size 10 CPS polyethylene bearing. All components were cemented in place with Biomet cement. Vikram arrived [facility] for the above procedure. He was seen in the preoperative holding area and the operative extremity was identified and signed. He was given a preoperative antibiotic, TXA, a spinal anesthetic and an adductor nerve block. He was taken back to the operating room and laid on the table in supine position. He was given basic sedation. The operative knee was then prepped and draped in sterile fashion. A timeout was done, and the patient and the operative extremity was properly identified. A midline incision was made directly over the patella. Dissection was taken down to the extensor mechanism. A medial parapatellar arthrotomy was used. The medial retinaculum was released and the fat pad was mostly excised. The knee was flexed and the ACL, PCL, and meniscus were removed. A drill was sent down the center of the femoral canal followed by an intramedullary jennifer. Off that jennifer a distal femoral cutting block was placed. 9 mm was resected off the distal femur at 5 of valgus. A posterior referencing AP sizing guide was then placed on the distal femur. The femur measured to be a size 12. 2 drill holes were placed in 3 of external rotation. A 4-in-1 cutting block was then impacted into place. Anterior, posterior, and chamfer cuts were then made. The proximal tibia was then exposed. An external tibial alignment guide was placed. A tibial cut guide was then anchored in place and the proximal tibia was then resected. The posterior aspect of the knee was then opened up and any additional meniscus fragments and osteophytes were removed. The tibia measured to be a size G. The tibial plate was then placed in the appropriate rotation and the tibia was drilled and punched. Trial components were then placed. I used a size 10 CPS polyethylene insert. The knee was brought through a full range of motion and felt to be stable. The peg holes for the femoral component were then drilled. The patella was then everted and 9 mm was resected off the posterior aspect of the patella. The patella measured to be a size 37 oval. 3 peg holes were then drilled. A trial patella was placed. The knee was once again brought through a full range of motion and felt to be stable. Trial components were then removed. The surrounding soft tissues were injected with 100 cc of an orthopedic pain control cocktail. All components were then cemented into place with Biomet cement. The final polyethylene insert was then snapped into place. Once cement was dry the tourniquet was deflated. Hemostasis was obtained. A dilute betadyne lavage was then done for 3 minutes. The joint was then irrigated with normal saline solution. The medial parapatellar arthrotomy was then closed with #1 Vicryl suture. The skin was closed with 2-0 Vicryl, 3-0V lock suture, and sebastian. A soft compressive dressing was placed. He was then transferred to a hospital bed and taken to the postanesthesia care unit in stable condition. He tolerated the procedure well. Gene Schrader PA-C, was present for the entire procedure. He was critical for patient positioning, prepping, draping, retraction exposure, wound closure and application of sterile dressing. I attest to the content of the Intraoperative Record and any orders documented therein. Any exceptions are noted below.
--- NOTE | 2024-01-05 11:04 | XRay Report ---
RIGHT KNEE 2 VIEWS History: Right total knee arthroplasty. Degenerative arthritis. Postop. FINDINGS: The patient is status post a right total knee arthroplasty. The hardware is intact. No frac ture or dislocation. Skin sebastian are in place. IMPRESSION: Right total knee arthroplasty. No evidence for hardware complication. ACT 112: Negative or not required by law. Electronically signed by: Scot Johnson M.D. 01/05/2024 11:02 AM
[2024-01-05] MEDS ORDERED: oxyCODONE HCL IR 5 MG TAB (IMMEDIATE RELEASE) PO PRN (11:55)
[2024-01-05] MEDS ORDERED: METOCLOPRAMIDE HCL INJ 5 MG/ML 2 ML VIAL IV PRN (11:55)
[2024-01-05] MEDS ORDERED: NALOXONE HCL 0.4 MG/1 ML VIAL/CARP IV PRN (11:55)
[2024-01-05] MEDS ORDERED: HYDROmorphone INJ 0.5 MG/0.5 ML SYR IV PRN (11:55)
[2024-01-05] MEDS ORDERED: MAGNESIUM HYDROXIDE SUSP 30 ML UDC PO PRN (11:55)
[2024-01-05] MEDS ORDERED: bisacodyL 10 MG SUPP PR PRN (11:55)
--- NOTE | 2024-01-05 12:28 | Anesthesiology Progress Note ---
Date of Service January 05, 2024 Anesthesia Post Procedure Vital Signs Vital Signs: Temp Pulse Pulse Resp BP Pulse Ox O2 Del Method 01/05/24 12:08 97.3 F L 58 L 18 130/79 94 Room Air 01/05/24 11:15 97.7 F 60 12 124/69 98 Room Air 01/05/24 11:05 59 L 13 111/67 95 Room Air 01/05/24 10:55 58 L 13 118/66 98 Room Air 01/05/24 10:46 96.8 F L 60 17 107/60 99 Oxymask 01/05/24 08:11 98.1 F 72 20 129/93 97 Room Air O2 Flow Rate 01/05/24 12:08 01/05/24 11:15 01/05/24 11:05 01/05/24 10:55 01/05/24 10:46 5 01/05/24 08:11 Transfer of Care Handoff Completed per policy Notes Mental Status: alert / awake / arousable and participated in evaluation Patient Amnestic to Procedure: Yes Nausea / Vomiting: adequately controlled Pain: adequately controlled Airway Patency, RR, SpO2: stable & adequate BP & HR: stable & adequate Hydration State: stable & adequate Neuraxial Anesthesia: was administered and sensory block is resolving Anesthetic Complications: no major complications apparent and Pt Satisfied with anesthetic care
[2024-01-05] MEDS: KETOROLAC TROMETHAMINE 15 MG/ML VIAL IV SCH (12:41)
[2024-01-05] MEDS: SODIUM CHLORIDE 0.9% 1,000 ML IV SCH (14:54)
[2024-01-05] MEDS: DOCUSATE SODIUM 100 MG CAP PO SCH (20:40)
[2024-01-05] MEDS: ASPIRIN 81 MG ECTAB PO SCH (20:40)
[2024-01-05] MEDS: SENNA 8.6 MG TAB PO SCH (20:41)
[2024-01-06] MEDS: MAGNESIUM OXIDE 400 MG TAB PO SCH (07:43)
[2024-01-06] MEDS: dexAMETHasone 4 MG TAB PO SCH (07:44)
[2024-01-06] MEDS: MULTIVITAMIN TAB PO SCH (07:44)
--- NOTE | 2024-01-06 07:44 | Orthopedic Progress Note ---
Date of Service January 06, 2024 Assessment & Plan (1) Status post right knee replacement: Overall he is doing very well. Is not having much pain in the right knee. He will be seen by physical therapy today for ambulation and range of motion exercises. He is on aspirin for DVT prophylaxis. The nursing staff can change his dressing after physical therapy. He can be discharged home later today. He will follow-up with orthopedics in 2 weeks. India Sue was seen and examined at bedside this morning. Overall is doing fairly well. Is not having much pain in the right knee. He has been up and ambulating. He has no complaints.. Review of Systems All systems reviewed & are unremarkable except as noted in HPI & below. Physical Exam On physical examination of the right knee, the dressing is clean and dry. His leg is out full extension. He has active dorsiflexion plantarflexion of his right ankle.. Results & Data Results & Data Laboratory Results . Diagnostic Findings Postoperative x-rays of the right knee show the prosthesis to be in anatomic alignment without any evidence of fracture complication, or loosening.. PG Care Time/CCT Total # of Minutes Spent Total Time Spent with Patient: Total time spent is greater than 50% in coordination of care (as documented) at patient's floor/unit and/or counseling patient: Coding Level of Care Code 73576 Post Operative Follow-Up Diagnoses Status post right knee replacement Z96.651
--- NOTE | 2024-01-06 07:45 | Discharge Summary ---
Date of Service January 06, 2024 Admission HPI (Per Admitting) Vikram is a pleasant 77-year-old male who I did a right hip replacement on him in the past. He has done very well with that. Unfortunately, he has been dealing with increasing right knee pain. He says his knee pain has waxed and waned over the years. Over the past few weeks, it has been quite painful. He has trouble walking long distances. He has trouble going up and down stairs. X-rays and clinical examination been diagnostic for advancing osteoarthritis of the right knee. After failing conservative treatment, he has elected to proceed with a right total knee arthroplasty. . Admission Exam (Per Admitting) On physical examination of the right knee, he has a slight varus deformity. He has tenderness palpation of the distal medial femoral condyle and over the medial joint line.. Principal Diagnosis Same as "Discharge Diagnosis" noted below under Discharge Instructions. Discharge Exam On physical examination of the right knee, the dressing is clean and dry. His leg is out full extension. He has active dorsiflexion plantarflexion of his right ankle.. Discharge Data Procedures Performed Operation Date: 01/05/24 09:00 Actual Procedures p Right Total Knee Arthroplasty(Right) - Gene Clayton DO Ordered Studies 01/05/24 05:00 US - OR guided needle placemen Routine Hospital Course (1) Status post right knee replacement: On January 05, 2024 for Vikram arrived at [facility] and underwent a right knee replacement without complication. He had a spinal anesthetic. Postoperatively he was started on aspirin for DVT prophylaxis and transferred to the general orthopedic floors. His hospital course was uneventful. On postop day #1, his vital signs were stable and his pain was well-controlled. He was able to participate well with physical therapy doing ambulation and range of motion exercises. He was then discharged home. He will follow-up with orthopedics in 2 weeks. PG Care Time/CCT Total # of Minutes Spent Total Time Spent with Patient: Total time spent is greater than 50% in coordination of care (as documented) at patient's floor/unit and/or counseling patient: Discharge Plan Discharge Items Patient Disposition: Home - Self-Care Reason For Visit: Right Knee Degenerative Joint Disease Discharge Diagnosis: Right knee replacement Activity: As commented below Non-emergency contact: Surgeon Call non-emergency contact if: your wound has increased redness and your wound has increased drainage Follow-up/Referrals: Minerva Snell MD [Primary Care Provider] - Diet: Regular Addtl Attending Provider Instructions: Activity and Therapy Recommendations: * If you are using [facility] then therapy will be provided at your home until they feel you have accomplished all of your goals. * If you are using [facility] then Physical Therapy will be provided until they feel you are ready to start Outpatient Physical Therapy. * If you are not using home therapy then Outpatient Physical Therapy should start about 3-5 days from your day of surgery. Therapy will last about 6-10 weeks * It is important not to put a pillow under your knee when you are relaxing or sleeping. It is just as important to make sure you are getting your knee perfectly straight as it is to regain your knee bend. * You were shown a series of exercises in the hospital. Do these exercises three times each day including the exercises you were shown in physical therapy. * Get up and walk several times each day. For the first four weeks, try not to stand or walk for more than one hour at a time. If you do stand or walk for more than one hour, you will not hurt anything, but your leg will likely swell. * As you feel comfortable, you may change from the walker or crutches to a cane and then to independent walking. Medications: * Narcotic You will likely be sent home from the hospital with a prescription for the narcotic pain medication that worked best throughout your stay. * Cefadroxil -take the antibiotic twice a day for 10 days to help prevent infection. * Aspirin Most patients will be required to take Aspirin 81mg twice a day for 6 weeks after surgery. This is obtained [id number] and a prescription is not necessary. * Other medications may be prescribed for specific circumstances. If you have any questions, please call the office at . * Resume previous home medications unless otherwise instructed TEDs/Elastic Stockings: The white elastic stockings help limit swelling and prevent blood clots from forming in your legs.~ The more you wear them, the more they work. Wear them for six weeks. Dressing Care: The dressing can be changed after physical therapy on postop day #1. Daily dry dressing changes for a few days, especially if the incision is still draining some. If the incision is not draining then you may leave the sebastian open to air. If there is a little bit of drainage or if the sebastian are getting stuck on your clothing then cover the incision with a dry dressing. The sebastian will be removed at your 2 week follow-up appointment. Showering: You may shower 5 days from the day of surgery as long as the incision is no longer draining. You may shower with the sebastian exposed. Let soapy water run over the sebastian and pat them dry. Do not scrub or soak the incision. Things To Watch For: * Drainage from the incision site that occurs more than one week after your surgery. * Increased redness at the incision site. * Fever above 102 degrees Fahrenheit. * Unusual chest pain or shortness of breath. * Call [facility] at with any of the above problems Follow-Up Visit: Follow-up with Dr. Clayton's PA (Gene Schrader) 2-3 weeks after your day of surgery. He will remove your sebastian and answer any questions. If you have any additional questions or concerns, Dr Clayton is usually in the office at the same time and will be available An appointment was probably scheduled when you signed-up for surgery in the office. If you have any questions call Office Instructions: More detailed instructions as well as Frequently Asked Questions were provided in a folder by our office when you signed-up for surgery. Please review these instructions when you get home. If you have any further questions or concerns, please feel free to call the [facility] at [phone] Pending Studies at Discharge: No Stand-Alone Forms: [facility] Sm[facility] Cessation Medications and DC Order Prescriptions: New oxycodone 5 mg Tablet 5 mg PO Q4H PRN (Reason: pain) Qty: 30 0RF aspirin 81 mg Tablet,Delayed Release (Dr/Ec) 81 mg PO BID 42 Days Qty: 0 0RF Continued amoxicillin 500 mg tablet 2,000 mg PO ONCE PRN (Reason: prophylaxis) Qty: 4 2RF Rx Instructions: ONE HOUR PRIOR TO DENTAL PROCEDURE diclofenac potassium 50 mg tablet 50 mg PO QAM ascorbate calcium (vitamin C) 500 mg tablet 500 mg PO QAM magnesium 250 mg Tablet 250 mg PO QAM [id number] [[id number]-[id number]-PCY(with boron)] [id number] mg Tablet 1 tab PO QAM Discharge Orders: Discharge Order (Routine); Ordered 01/06/24 Ordered By: Gene Clayton Admission Data Admit Date/Time: 01/05/24 10:49 Attending Provider: Gene Clayton Admit Provider: Gene Clayton Primary Care Provider: Minerva Snell Other Providers: [facility]
== END 2024-01-06 11:37 | disposition home health service (06) ==
LOC: 3E 07:18 → ASU 07:18